=== PATIENT | male | born 1970 | race African-American/Black ===

== ENCOUNTER 2024-12-06 22:43 | Emergency (ER) | payer MEDICAID, OTHER ==
[~2024-12-06] VITALS: Ht 170.2 cm; Wt 87.0 kg
[2024-12-06 22:48] VITALS: O2SAT 100
[2024-12-06] MEDS: HYDROCODONE/ACETAMINOPHEN 5/325MG TABLET PO ONE (23:26)
[2024-12-07 00:11] LABS: CHLORIDE 107 mEq/L (98-107); POTASSIUM 4.2 mEq/L (3.5-5.1); SODIUM 140 mEq/L (136-145)
[2024-12-07 00:12] LABS: CARBON DIOXIDE 28 mEq/L (21-32)
[2024-12-07 00:16] LABS: BASOPHILS % 0.7 % (0.0-2.0); EOSINOPHILS % 1.4 % (0.0-5.0); HEMATOCRIT. 45.2 % (42.0-52.0); HEMOGLOBIN. 15.5 g/dL (14.0-18.0); LYMPHOCYTES % 22.4 % (20.0-50.0); MEAN CORPUSCULAR HEMOGLOBIN 30.4 pg (28.0-32.0); MEAN CORPUSCULAR HGB CONC 34.2 g/dL (31.0-37.0); MEAN CORPUSCULAR VOLUME 88.7 fL (80.0-94.0); MEAN PLATELET VOLUME 8.8 fl (7.4-10.4); MONOCYTES % 7.1 % (2.0-8.0); NEUTROPHILS % 68.4 % (40.0-76.0); PLATELET 282 x1000/uL (130-400); RED CELL DISTRIBUTION WIDTH 14.4 % (11.6-14.6)
[2024-12-07 00:17] LABS: GLUCOSE 108 mg/dL (70-105); UREA NITROGEN BLOOD 10 mg/dL (9-23)
[2024-12-07 00:19] LABS: TROPONIN I HIGH SENSITIVITY 5 ng/L (3.0-53)
[2024-12-07] MEDS ORDERED: NAPR-1074 MT (00:52)
[2024-12-07 00:53] VITALS: BP 162/109; PULSE 92; RESP 18; TEMP 36.8; O2SAT 100
== END 2024-12-07 01:02 | disposition home or self-care (01) ==
LOC: ER 22:43
DX: S43.102A Unspecified dislocation of left acromioclavicular joint, initial encounter (principal); M25.561 Pain in right knee; V89.2XXA Person injured in unspecified motor-vehicle accident, traffic, initial encounter; Y93.89 Activity, other specified; Y92.89 Other specified places as the place of occurrence of the external cause; Y99.8 Other external cause status
CPT/HCPCS: 36415; 71045; 73030; 73562; 80048; 84484; 85025; 93005; 99285; A4565